=== PATIENT | male | born 1945 | race Two or more races ===

== ENCOUNTER 2024-11-28 04:32 | Inpatient (IN) | payer MEDICARE, MEDICAID ==
[~2024-11-28] VITALS: Ht 160 cm; Wt 63.6 kg
[2024-11-28] MEDS: PIPERACILLIN-TAZOB 3.375GM 100 ML IV ONE ×2 (04:45→10:00)
--- NOTE | 2024-11-28 04:51 | ED.PDOC ---
Altered Mental Status HPI Comments 78-year-old male with a history of Parkinson's disease and dementia brought in by ambulance. The patient's daughter who has power of assistant attorney general stated that the patient has been had greater generalized weakness than usual and a little bit worse mental status over the last 2 days. Patient complains of some dull left flank pain Time Seen by MD: 04:36 Allergies: Coded Allergies: NO KNOWN ALLERGIES (Unverified , 11/28/24) Information Source: Patient Mode of Arrival: EMS Severity: Moderate Timing: Days Duration: Since onset History of: Dementia Past Medical History PAST MEDICAL HISTORY: Dementia Past Medical History (Other): Parkinson's disease Social History Smoker: Non-Smoker Alcohol: Denies ETOH Use Constitutional: reports: malaise Neurological: reports: weakness Unable to Obtain due to: Altered Mental Status, Dementia All Other Systems: Reviewed and Negative Physical Exam General Appearance: Mild Distress, Other (Elderly, somewhat frail) HEENT: Normal ENT Inspection, Pharynx Normal, TMs Normal Neck: Full Range of Motion, Non-Tender, Normal, Normal Inspection Respiratory: Chest Non-Tender, Lungs Clear, No Accessory Muscle Use, No Respiratory Distress, Normal Breath Sounds Cardiovascular: No Edema, No JVD, No Murmur, No Gallop, Normal Peripheral Pulses, Regular Rate/Rhythm Breast Exam: Deferred Gastrointestinal: No Organomegaly, Non Tender, No Pulsatile Mass, Normal Bowel Sounds, Soft Genitalia: Deferred Pelvic: Deferred Rectal: Deferred Extremities: No calf tenderness, Normal capillary refill, Normal inspection, Normal range of motion, Non-tender, No pedal edema Musculoskeletal : Apperance: Normal Neurologic: Motor Weakness, Other (Mild pill-rolling tremor) Cerebellar Function: Normal Reflexes: Normal Skin: Dry, Normal Color, Warm Lymphatic: No Adenopathy Was a procedure done? Was a procedure done?: No Differential Diagnosis (ALOC) Differential Diagnosis: Dehydration, DKA, Encephalopathy, Meningitis, Sepsis, Closed Head Injury, SAH, Drug Overdose, ETOH Intoxication, Other X-Ray, Labs, Meds, VS Vital Signs Date Time Temp Pulse Resp B/P (MAP) Pulse Ox O2 Delivery O2 Flow Rate FiO2 11/28/24 04:39 68 11/28/24 04:32 98.0 70 21 105/70 95 98.0 Time of 1ST Reevaluation: 04:48 Reevaluation 1ST: Unchanged Patient Education/Counseling: Diagnosis, Treatment Family Education/Counseling: No Family Present Sepsis focused exam: focus exam completed (Patient was given initial 1 L bolus of fluid and not the full 30 mL per kg bolus due to concerns of fluid overload), time: (0500 am) SEPSIS Sepsis Screen Recent Procedure: No On Antibiotic Therapy: No Respiratory Rate >20: No Heart Rate >90: No Temp<36 C (96.8 F) or >38.3 C: No SBP <90 or MAP <65 mmHG: Yes New Acute Mental Status Change: Yes Is the patient on CPAP, BIPAP,: No IV fluid challenge completed?: No Physician Orders Electrocardigram (11/28/24 04:41) Complete Blood Count (11/28/24 04:42) Comprehensive Metabolic Panel (11/28/24 04:42) Lipase (11/28/24 04:42) Urinalysis (11/28/24 04:42) Ct Ab Pel Wo Con-No Oral Or Iv (11/28/24 04:42) Blood Culture (11/28/24 04:42) Chest Portable (11/28/24 04:42) Lactic Acid W/ Reflex Order (11/28/24 04:42) Vital Signs Date Time Temp Pulse Resp B/P (MAP) Pulse Ox O2 Delivery O2 Flow Rate FiO2 11/28/24 04:39 68 11/28/24 04:32 98.0 70 21 105/70 95 98.0 Departure 1 Departure Time of Disposition: 07:00 Impression: Primary Impression: Generalized weakness Additional Impressions: Dehydration Hypotension Disposition: ADMITTED INPATIENT Admit to: Med Surg Condition: Guarded Comments Patient with a history of Parkinson's disease and dementia. Now had some generalized weakness. His blood pressure is a little low with a systolic of 105. I think he might be dehydrated. Possible sepsis. Patient was given IV fluids and Zosyn antibiotics. Patient will need admission for supportive care and further workup. Critical Care Note Critical Care Time?: No Stability Stability form required: No Heart Score Heart Score: Heart Score Response (Comments) Value History Slightly Suspicious 0 EKG Repolarization Disturb 1 Age >65 2 Risk Factors 1 or 2 risk factors 1 Troponin Normal limit 0 Total 4 MOLLY SANTOYO MD Nov 28, 2024 04:51
--- NOTE | 2024-11-28 05:54 | DVH ---
CHEST RADIOGRAPH Indication: SOB Technique: Single frontal view of the chest was obtained COMPARISON: None FINDINGS: Lines and Tubes: None. Left anterior chest wall dual lead cardiac pacing device. Lungs: Clear Pleura: No effusion. No pneumothorax. Cardiomediastinal contours: Unremarkable Bones: Unremarkable. Surgical anchors overlie the right humeral head. IMPRESSION: 1. No acute disease.
[2024-11-28 06:10] LABS: Hematocrit 42.3 % (41.0-53.0); Hemoglobin 14.3 g/dL (13.5-17.5); Mean Corpuscular Hemoglobin 32.3 pg (28.0-32.0); Mean Corpuscular Volume 95.4 fL (80.0-100.0); Nucleated Red Blood Cells % 0.1 %
[2024-11-28] MEDS: SODIUM CHLORIDE 0.9% 1,000 ML IVB ONE (06:10)
--- NOTE | 2024-11-28 06:15 | DVH ---
Exam: CT CT AB PEL WO CON-NO ORAL OR IV History: left flank pain Comparison Study: None Technique: Multidetector spiral CT of the abdomen was performed from lung bases to pubic symphysis. I maging was performed without IV contrast. Axial, coronal and sagittal multiplanar reformats were obta ined from the axial data set by the technologist. Radiation Dose : 1. Abdomen/Pelvis: CTDIvol 7.87 mGy, DLP 430.49 mGy*cm. Findings: Evaluation of solid organs is limited due to lack of intravenous contrast use. Lung Bases: No acute or significant lung base finding. Moderate bibasilar atelectasis. Cardiomegaly. Cardiac pacing leads. No pleural or pericardial effusion. Liver: The liver is normal in size. Benign-appearing cysts measure up to 1.2 cm. No focal lesions. Gallbladder and Biliary Tree: Unremarkable Spleen: Unremarkable Pancreas: The pancreas is grossly normal in appearance. Adrenal Glands: Unremarkable Kidneys: Kidneys are grossly normal without calculi or hydronephrosis. 4.2 cm left interpolar renal c ortical cyst. Bladder: Grossly unremarkable for degree of distention. Bowel: The stomach is grossly normal in appearance. Retained colorectal stool. Small bowel and colon are otherwise normal in caliber and distribution. The appendix is normal. Ascites: Absent Lymphadenopathy: No mesenteric, retroperitoneal or periportal lymphadenopathy. Abdominal Wall and Mesentery: Unremarkable. Vasculature: The visualized abdominal aorta is normal in size and caliber. Atherosclerotic vascular c alcifications. Evaluation of abdominal and pelvic vessels is limited due to lack of intravenous contr ast. Pelvic Organs: Unremarkable. Bilateral inguinal hernias. The left inguinal hernia contains a partia l segment of sigmoid colon without evidence of resulting obstruction. Musculoskeletal: No aggressive focal bony lesions, acute fractures or dislocation. IMPRESSION: 1. No acute abdominal or pelvic findings. 2. Cardiomegaly. 3. Retained colorectal stool. 4. Left inguinal hernia containing a partial segment of sigmoid colon without evidence of incarcerati on or obstruction. Radiation optimization: All CT scans at this facility use at least one of these dose optimization loulou hniques: automated exposure control mA and/or kV adjustment per patient size (includes targeted exam s where dose is matched to clinical indication) or iterative reconstruction.
[2024-11-28 06:24] VITALS: PULSE 68; RESP 16; O2SAT 100
[2024-11-28 06:29] LABS: Alanine Aminotransferase 20 U/L (7-40); Albumin 3.9 g/dL (3.2-4.8); Alkaline Phosphatase 107 U/L (46-116); Anion Gap 7 (5-15); BUN/Creatinine Ratio 13.4 (10.0-20.0); Blood Urea Nitrogen 16 mg/dL (9-23); Calcium 9.2 mg/dL (8.7-10.4); Carbon Dioxide 27 mmol/L (20-31); Glucose 85 mg/dL (74-106); Potassium 4.5 mmol/L (3.5-5.1); Sodium 141 mmol/L (136-145); Total Protein 6.6 g/dL (5.7-8.2)
[2024-11-28 06:30] LABS: Bilirubin, Total 0.8 mg/dL (0.2-1.0)
[2024-11-28 06:40] LABS: Chloride 107 mmol/L (98-107); Lipase 60 U/L (12-53)
--- NOTE | 2024-11-28 07:10 | ECG ---
[facility] Test Date: 2024-11-28 Test Time: 04:39:07 Pat Name: ROBERTH ZUNIGA Department: Room: [address] [place] [address] Gender: M Animal Care Attendant: JUDE : 1945 Requested By: MOLLY SANTOYO Order Number: [id number] Reading MD: Herminio Louis Measurements Intervals [place] Rate: 68 P: 0 MS: 0 QRS: -55 QRSD: 136 T: 83 QT: 485 QTc: 516 Interpretive Statements Junctional rhythm Nonspecific IVCD with LAD LVH with secondary repolarization abnormality Electronically Signed On 11-28-2024 17:58:06 PDT by Herminio Louis Please click the below link to view image of tracing.
[2024-11-28] MEDS ORDERED: ONDANSETRON HCL 4 MG/2 ML VIAL IV PRN (07:15)
--- NOTE | 2024-11-28 07:18 | DVHHP2 ---
History of Present Illness Reason for Visit: Generalized weakness History of Present Illness 79-year-old male with a past medical history of Parkinson's disease, dementia, atrial fibrillation on Eliquis, hyperlipidemia, and hypertension presents to the emergency department via EMS with a chief complaint of generalized weakness. The patient is alert and oriented to person and place, which is consistent with his cognitive baseline per family. He denies any acute pain. His daughter, who provides collateral history, reports that around three a.m. this morning, while she was changing him, he suddenly became stiff and began shaking, followed by a noticeable change in when dull status that was not consistent with his usual baseline. She also notes that the patient has been IV receiving outpatient physical therapy for progressive weakness over the past several weeks. There is no history of trauma recent falls. In the ED, lipase was mildly elevated at 60. UA is pending Past Medical History As stated in HPI Past Surgical History Denies Family History Reviewed, non-contributory to the management of this case. Past Social History The patient lives at home, denies smoking, alcohol or illicit drugs abuse. Review of Systems Constitutional: Yes: Weakness, Malaise; No: Fever, Chills, Sweats, Other Eyes: No: Pain, Vision change, Conjunctivae inflammation, Eyelid inflammation, Other, Redness ENT: No: Ear pain, Ear discharge, Nose pain, Nose discharge, Nose congestion, Mouth pain, Mouth swelling, Throat pain, Throat swelling, Other Respiratory: No: Cough, Dry, Shortness of breath, SOB with excertion, Wheezing, Hemoptysis, Pleuritic Pain, Sputum, Wheezing, Other Gastrointestinal: No: Nausea, Vomiting, Abdominal Pain, Diarrhea, Constipation, Melena, Hematochezia, Other Genitourinary: No Dysuria, No Frequency, No Incontinence, No Hematuria, No Retention, No Other Musculoskeletal: No: other, neck pain, shoulder pain, arm pain, back pain, hand pain, leg pain, foot pain Skin: No: Rash, Lesions, Jaundice, Bruising, Other Neurological: Confusion Allergies: Coded Allergies: NO KNOWN ALLERGIES (Unverified , 11/28/24) Exam Vital Signs Vital Signs Date Time Temp Pulse Resp B/P (MAP) Pulse Ox O2 Delivery O2 Flow Rate FiO2 11/28/24 06:24 68 16 100 Nasal Cannula* 2 28 11/28/24 05:30 98.3 117/78 (91) 98.3 General Appearance: Alert, Cooperative, No acute distress, Other (Alert and oriented x2) HEENT: Atraumatic, PERRLA, EOMI Respiratory: Clear to auscultation Cardiovascular: Regular rate Abdominal: Normal bowel sounds, Soft Extremities: No clubbing, No cyanosis, No edema Skin: No rashes, No breakdown Neuro: Normal speech Labs/Xrays Labs Test 11/28/24 05:50 Range/Units White Blood Count 7.7 4.4-10.8 10^3/uL Red Blood Count 4.44 L 4.5-5.90 10^6/uL Hemoglobin 14.3 13.5-17.5 g/dL Hematocrit 42.3 41.0-53.0 % Mean Corpuscular Volume 95.4 80.0-100.0 fL Mean Corpuscular Hemoglobin 32.3 H 28.0-32.0 pg Mean Corpuscular Hemoglobin Concent 33.8 32.0-36.0 g/dL Red Cell Distribution Width 15.1 H 11.8-14.3 % Platelet Count 199 140-450 10^3/uL Mean Platelet Volume 6.8 L 6.9-10.8 fL Neutrophils (%) (Auto) 78.1 37.0-80.0 % Lymphocytes (%) (Auto) 12.0 10.0-50.0 % Monocytes (%) (Auto) 8.8 0.0-12.0 % Eosinophils (%) (Auto) 0.6 0.0-7.0 % Basophils (%) (Auto) 0.5 0.0-2.0 % Neutrophils # (Auto) 6.1 1.6-8.6 10 ^3/uL Lymphocytes # (Auto) 0.9 0.4-5.4 10 ^3/uL Monocytes # (Auto) 0.7 0-1.3 10 ^3/uL Eosinophils # (Auto) 0 0-0.8 10 ^3/uL Basophils # (Auto) 0 0-0.2 10 ^3/uL Nucleated Red Blood Cells 0.1 % Sodium Level 141 136-145 mmol/L Potassium Level 4.5 3.5-5.1 mmol/L Chloride Level 107 98-107 mmol/L Carbon Dioxide Level 27 20-31 mmol/L Anion Gap 7 5-15 Blood Urea Nitrogen 16 9-23 mg/dL Creatinine 1.19 0.700-1.30 mg/dL Glomerular Filtration Rate Calc 63 >90 mL/min BUN/Creatinine Ratio 13.4 10.0-20.0 Serum Glucose 85 74-106 mg/dL Lactic Acid Level 1.3 0.4-2.0 mmol/L Calcium Level 9.2 8.7-10.4 mg/dL Total Bilirubin 0.8 0.2-1.0 mg/dL Aspartate Amino Transferase (AST) 29 13-40 U/L Alanine Aminotransferase (ALT) 20 7-40 U/L Alkaline Phosphatase 107 46-116 U/L Total Protein 6.6 5.7-8.2 g/dL Albumin 3.9 3.2-4.8 g/dL Lipase 60 H 12-53 U/L PROCEDURE(s): CXRP - CHEST PORTABLE REASON: SOB ORDER NUMBER(s): [id number], ACCESSION NUMBER(s): [id number] CHEST RADIOGRAPH Indication: SOB Technique: Single frontal view of the chest was obtained COMPARISON: None FINDINGS: Lines and Tubes: None. Left anterior chest wall dual lead cardiac pacing device. Lungs: Clear Pleura: No effusion. No pneumothorax. Cardiomediastinal contours: Unremarkable Bones: Unremarkable. Surgical anchors overlie the right humeral head. IMPRESSION: 1. No acute disease. SEPSIS Sepsis Screen Date sepsis recognized/suspect: Nov 28, 2024 Time Sepsis recognized/suspect: 04:32 Recent Procedure: No On Antibiotic Therapy: No Respiratory Rate >20: No Heart Rate >90: No Temp<36 C (96.8 F) or >38.3 C: No SBP <90 or MAP <65 mmHG: Yes New Acute Mental Status Change: Yes Is the patient on CPAP, BIPAP,: No IV fluid challenge completed?: No Physician Orders Urinalysis (11/28/24 04:42) Ct Ab Pel Wo Con-No Oral Or Iv (11/28/24 04:42) Blood Culture (11/28/24 04:42) Chest Portable (11/28/24 04:42) Straightcath If Unable To Void (11/28/24 07:14) Admit (11/28/24 07:14) Code Status (11/28/24 07:14) 0.9% Ns 1000 Ml (11/28/24 07:15) Ondansetron Hcl (Zofran) (11/28/24 07:15) Enoxaparin Sodium (Lovenox) (11/28/24 10:00) Fall Risk Precautions In Place QSHIFT (11/28/24 07:14) Complete Blood Count (11/29/24 04:00) Comprehensive Metabolic Panel (11/29/24 04:00) Cardiac Diet-2gna,Lofat,Lochol (11/28/24 Breakfast) Pt Request For Service (11/28/24 07:14) Vital Signs Date Time Temp Pulse Resp B/P (MAP) Pulse Ox O2 Delivery O2 Flow Rate FiO2 11/28/24 06:24 68 16 100 Nasal Cannula* 2 28 11/28/24 05:30 98.3 65 16 117/78 (91) 100 98.3 11/28/24 04:39 68 11/28/24 04:32 98.0 70 21 105/70 95 98.0 Laboratory Tests Test 11/28/24 05:50 Lactic Acid Level 1.3 mmol/L (0.4-2.0) White Blood Count 7.7 10^3/uL (4.4-10.8) Medications Medications Dose Ordered Sig/Harris Route Start Time Stop Time Status Last Admin Dose Admin Sodium Chloride 1,000 ml @ 1,000 mls/hr Q1H ONCE IVB 11/28/24 04:45 11/28/24 05:44 DC 11/28/24 06:10 1,000 MLS/HR Assessment/Plan Assessment/Plan # Generalized weakness * Admit to medical surgical unit * Physical therapy evaluation and treatment * Continue IV fluids for hydration * UA pending * High fall risk precautions # Parkinson's disease # dementia # ALOC * CT head ordered * Consider Neurology consult depending on progression # hypertension * Monitor, noted patient on midodrine * Hydralazine as needed # hyperlipidemia * Continue with statins * Lipid panel # hx of AFib * Continue with amiodarone * Continue Eliquis on discharge, Lovenox if CT is negative and while in-patient DVT prophylaxis Medical plan discussed with patient and daughter over the phone Plan discussed with: Patient My Orders Orders - NURYS POLANCO ENERGY DIRECTOR Procedure Category Date Status Time Straightcath If ORDERS 11/28/24 Verified Unable To Void 07:14 Admit ADMIT 11/28/24 Verified 07:14 Code Status CODE 11/28/24 Verified 07:14 0.9% Ns 1000 Ml PHA 11/28/24 Verified 07:15 Ondansetron Hcl PHA 11/28/24 Verified (Zofran) 07:15 Enoxaparin Sodium PHA 11/28/24 Verified (Lovenox) 10:00 Fall Risk Precautions ROMEO 11/28/[address] 07:14 Complete Blood Count LAB 11/29/24 Verified 04:00 Comprehensive LAB 11/29/24 Verified Metabolic Panel 04:00 Cardiac DIET 11/28/24 Verified Diet-2gna,Lofat,Lochol Breakfast Pt Request For Service PT 11/28/24 Verified 07:14 Date of Service: Nov 28, 2024 Billing Provider: NURYS POLANCO Common Visit Codes: [id number] INP/OBS CARE (HIGH) Consultation Codes: [id number] CONSULT <45MIN NURYS POLANCO Nov 28, 2024 07:18
[2024-11-28 07:20] VITALS: PULSE 70; RESP 16; O2SAT 96
[2024-11-28] MEDS ORDERED: AMIO200T13 PO (08:22)
[2024-11-28] MEDS ORDERED: ATOR40TA52 PO (08:22)
[2024-11-28] MEDS ORDERED: hydrALAZINE HCL 20 MG/ML VL IV PRN (08:30)
[2024-11-28 09:12] LABS: Triglycerides 111 mg/dL (< 150)
[2024-11-28 09:14] LABS: Cholesterol 157 mg/dL (< 200); HDL Cholesterol 44 mg/dL (40-59)
--- NOTE | 2024-11-28 09:58 | DVH ---
EXAM: CT HEAD WITHOUT CONTRAST INDICATION: aloc TECHNIQUE: CT of the head without intravenous contrast. Coronal and sagittal reformatted images are s ubmitted. Radiation Dose : 1. Head: CT Dose: CTDI volume is 58.09 mGy. Dose-length product is 929.5 mGy*cm The dose indicators for CT are the volume Computed Tomography (CT) Dose Index (CTDIvol) and the Dose Length Product (DLP), and are measured in units of mGy and mGy-cm, respectively. These indicators are not patient dose, but values generated from the CT scanner acquisition factors. The report includes radiation exposure data for exposures received during this examination. All CT scans at this medical facility are performed using dose modulation techniques as appropriate to a performed exam including the following: Automated exposure control was utilized; adjustment of the MA and/or KV according to patient size; and use of iterative reconstruction technique. COMPARISON: None FINDINGS: There is no evidence of acute intracranial hemorrhage, extra-axial collection, mass effect, midline s hift, herniation or hydrocephalus. There are periventricular and subcortical hypodensities, nonspecific, but likely reflecting sequelae of chronic microvascular ischemic changes. The ventricles, sulci and cisterns are age appropriate. The carrillo-white differentiation is intact. The visualized paranasal sinuses and mastoid air cells are clear. No depressed calvarial fracture. The surrounding soft tissues are unremarkable. IMPRESSION: 1. No evidence of acute intracranial abnormality.
[2024-11-28] MEDS: SODIUM CHLORIDE 0.9% 1,000 ML IV SCH (10:00)
[2024-11-28] MEDS: AMIODARONE HCL 200 MG TAB PO SCH (10:40)
[2024-11-28] MEDS: ENOXAPARIN SOD 40 MG/0.4 ML SYRINGE SC SCH (10:41)
--- NOTE | 2024-11-28 12:28 | DVHPN2 ---
Reviewed: Care Plan, H&P, Labs, Medications, Previous Orders, Radiology Changes from previous H/P or p: No Changes Eyes: No Pain, No Vision change, No Conjunctivae inflammation, No Eyelid inflammation, No Other, No Redness ENT: No Ear pain, No Ear discharge, No Nose pain, No Nose discharge, No Nose congestion, No Mouth pain, No Mouth swelling, No Throat pain, No Throat swelling, No Other Respiratory: No Cough, No Dry, No Shortness of breath, No SOB with excertion, No Wheezing, No Hemoptysis, No Pleuritic Pain, No Sputum, No Other Gastrointestinal: No Nausea, No Vomiting, No Abdominal Pain, No Diarrhea, No Constipation, No Melena, No Hematochezia, No Other Genitourinary: No Dysuria, No Frequency, No Incontinence, No Hematuria, No Retention, No Other Musculoskeletal: No other, No neck pain, No shoulder pain, No arm pain, No back pain, No hand pain, No leg pain, No foot pain Skin: No Rash, No Lesions, No Jaundice, No Bruising, No Other Objective Vitals Vital Signs Date Time Temp Pulse Resp B/P (MAP) Pulse Ox O2 Delivery O2 Flow Rate FiO2 11/28/24 07:20 70 16 96 Nasal Cannula* 2 28 11/28/24 07:20 97.7 122/81 (95) 97.7 Medications Current Medications Medications Dose Ordered Sig/Harris Route Start Time Stop Time Status Last Admin Dose Admin Sodium Chloride 1,000 ml @ 60 mls/hr [id number] IV 11/28/24 07:15 11/28/24 10:00 60 MLS/HR Ondansetron HCl 4 mg Q4HP PRN IV 11/28/24 07:15 Enoxaparin Sodium 40 mg DAILY SC 11/28/24 10:00 11/28/24 10:41 40 MG Amiodarone HCl 200 mg DAILY PO 11/28/24 10:00 11/28/24 10:40 200 MG Atorvastatin Calcium 40 mg HS PO 11/28/24 22:00 Hydralazine HCl 10 mg Q6HP PRN IV 11/28/24 08:30 Laboratory Results Laboratory Tests 11/28/24 05:50 Chemistry Test 11/28/24 05:50 Albumin 3.9 g/dL (3.2-4.8) Calcium Level 9.2 mg/dL (8.7-10.4) Total Protein 6.6 g/dL (5.7-8.2) Lipid panel Test 11/28/24 05:50 Cholesterol Level 157 mg/dL (< 200) HDL Cholesterol 44 mg/dL (40-59) Lipase 60 U/L (12-53) H Triglycerides Level 111 mg/dL (< 150) LFT Test 11/28/24 05:50 Alanine Aminotransferase (ALT) 20 U/L (7-40) Alkaline Phosphatase 107 U/L (46-116) Aspartate Amino Transferase (AST) 29 U/L (13-40) Total Bilirubin 0.8 mg/dL (0.2-1.0) Labs and/or images reviewed: Labs reviewed by me, Image(s) reviewed by me Assessment/Plan Assessment/Plan Acute generalized weakness Acute Dehydration: IV fluids Parkinson's disease Dementia Acute metabolic encephalopathy Hypotension Hypercholesterolemia History of AFib: Amiodarone Eliquis Chest x-ray Negative CT head negative CT abdomen pelvis without contrast negative Time spent 70 minutes Advanced care planning time 20 minutes Patient is full code Plan discussed with: Patient My Orders Orders - DOROTA MONTANA MD Procedure Category Date Status Time Urinalysis LAB 11/28/24 Logged 12:24 Urine Bacterial ALIYAH 11/28/24 Transmitted Culture 12:24 Blood Culture ALIYAH 11/28/24 Transmitted 12:24 Date of Service: Nov 28, 2024 Billing Provider: DOROTA MONTANA MD Common Visit Codes: [id number] CARE 30-74 MIN DOROTA MONTANA MD Nov 28, 2024 12:28
[2024-11-28 12:35] LABS: Urine Protein, UAD Negative (Negative)
[2024-11-28 13:31] LABS: COVID19 ANTIGEN SOFIA FIA NEGATIVE (NEGATIVE)
[2024-11-28] MEDS: LORazepam 2MG/ML-1ML VIAL IV ONE (15:00)
[2024-11-28] MEDS: LORazepam 2MG/ML-1ML VIAL ONE (15:22)
[2024-11-28 20:00] VITALS: BP 109/65; PULSE 85; TEMP 98.2
[2024-11-28 21:00] VITALS: BP 97/67; PULSE 73
[2024-11-28] MEDS: CARBIDOPA W LEVODOPA 25/100mg TABLET PO SCH (21:39)
[2024-11-28] MEDS: ATORVASTATIN 20 MG TAB PO SCH (21:40)
[2024-11-28 22:00] VITALS: BP 95/59; PULSE 75
[2024-11-28 23:00] VITALS: BP 93/59; PULSE 73
[2024-11-29] VITALS (8 sets, daily range): BP systolic 100–112; BP diastolic 64–79; PULSE 73–90; RESP 16–18; TEMP 97.7–97.9; O2SAT 96–100
[2024-11-29] MEDS: MIDODRINE HCL 10 MG TAB PO ONE (00:33)
[2024-11-29 05:57] LABS: Hematocrit 41.7 % (41.0-53.0); Hemoglobin 13.8 g/dL (13.5-17.5); Mean Corpuscular Hemoglobin 32.3 pg (28.0-32.0); Mean Corpuscular Volume 97.7 fL (80.0-100.0); Nucleated Red Blood Cells % 0.0 %
[2024-11-29 06:14] LABS: Alanine Aminotransferase 29 U/L (7-40); Albumin 3.8 g/dL (3.2-4.8); Alkaline Phosphatase 99 U/L (46-116); Anion Gap 9 (5-15); BUN/Creatinine Ratio 21.0 (10.0-20.0); Blood Urea Nitrogen 21 mg/dL (9-23); Calcium 8.8 mg/dL (8.7-10.4); Carbon Dioxide 24 mmol/L (20-31); Potassium 4.5 mmol/L (3.5-5.1); Sodium 143 mmol/L (136-145); Total Protein 6.0 g/dL (5.7-8.2)
[2024-11-29 06:15] LABS: Bilirubin, Total 0.9 mg/dL (0.2-1.0); Chloride 110 mmol/L (98-107); Glucose 69 mg/dL (74-106)
--- NOTE | 2024-11-29 12:31 | DVHPN2 ---
Reviewed: Care Plan, H&P, Labs, Medications, Previous Orders, Radiology Changes from previous H/P or p: No Changes Eyes: No Pain, No Vision change, No Conjunctivae inflammation, No Eyelid inflammation, No Other, No Redness ENT: No Ear pain, No Ear discharge, No Nose pain, No Nose discharge, No Nose congestion, No Mouth pain, No Mouth swelling, No Throat pain, No Throat swelling, No Other Respiratory: No Cough, No Dry, No Shortness of breath, No SOB with excertion, No Wheezing, No Hemoptysis, No Pleuritic Pain, No Sputum, No Other Gastrointestinal: No Nausea, No Vomiting, No Abdominal Pain, No Diarrhea, No Constipation, No Melena, No Hematochezia, No Other Genitourinary: No Dysuria, No Frequency, No Incontinence, No Hematuria, No Retention, No Other Musculoskeletal: No other, No neck pain, No shoulder pain, No arm pain, No back pain, No hand pain, No leg pain, No foot pain Skin: No Rash, No Lesions, No Jaundice, No Bruising, No Other Objective Vitals Vital Signs Date Time Temp Pulse Resp B/P (MAP) Pulse Ox O2 Delivery O2 Flow Rate FiO2 11/29/24 12:22 73 11/29/24 12:00 20 103/72 (82) 100 11/29/24 08:25 98.2 98.2 11/29/24 08:25 Nasal Cannula* 2 28 Intake/Output Intake and Output 11/29/24 07:00 Intake Total 820 ml Output Total 800 ml Balance 20 ml Intake Oral 240 ml IV Total 580 ml Output Urine Total 800 ml Medications Current Medications Medications Dose Ordered Sig/Harris Route Start Time Stop Time Status Last Admin Dose Admin Sodium Chloride 1,000 ml @ 60 mls/hr [id number] IV 11/28/24 07:15 11/29/24 00:22 60 MLS/HR Ondansetron HCl 4 mg Q4HP PRN IV 11/28/24 07:15 Enoxaparin Sodium 40 mg DAILY SC 11/28/24 10:00 11/29/24 10:10 40 MG Amiodarone HCl 200 mg DAILY PO 11/28/24 10:00 11/28/24 10:40 200 MG Atorvastatin Calcium 40 mg HS PO 11/28/24 22:00 11/28/24 21:40 40 MG Hydralazine HCl 10 mg Q6HP PRN IV 11/28/24 08:30 Carbidopa/Levodopa 1 tab TID PO 11/28/24 22:00 11/29/24 05:02 1 TAB Laboratory Results Laboratory Tests 11/29/24 04:50 Chemistry Test 11/29/24 04:50 Albumin 3.8 g/dL (3.2-4.8) Calcium Level 8.8 mg/dL (8.7-10.4) Total Protein 6.0 g/dL (5.7-8.2) LFT Test 11/29/24 04:50 Alanine Aminotransferase (ALT) 29 U/L (7-40) Alkaline Phosphatase 99 U/L (46-116) Aspartate Amino Transferase (AST) 30 U/L (13-40) Total Bilirubin 0.9 mg/dL (0.2-1.0) Urinalysis Test 11/28/24 12:27 Urine Color Light-yellow (Yellow) Urine Clarity Clear (Clear) Urine pH 5.5 (5.0-9.0) Urine Specific [place] 1.009 (1.001-1.035) Urine Protein Negative (Negative) Urine Ketones Negative (Negative) Urine Blood Negative /uL (Negative) Urine Nitrite Negative (Negative) Urine Bilirubin Negative (Negative) Urine Urobilinogen Normal mg/dL (Negative) Urine Leukocyte Esterase Negative /uL (Negative) Urine RBC <1 /hpf (0 - 3) Urine Microscopic WBC < 1 /HPF (0-3) Urine Squamous Epithelial Cells Few /hpf (<5) Urine Bacteria None seen /hpf (None Seen) Urine Glucose Normal mg/dL (Normal) Microbiology Microbiology Date/Time Source Procedure Growth Status 11/28/24 12:27 Voided Urine Urine Culture - Preliminary Resulted 11/28/24 11:05 Blood Blood Culture - Preliminary NO GROWTH AFTER 24 HOURS OF INCUBATION. Resulted Labs and/or images reviewed: Labs reviewed by me, Image(s) reviewed by me Assessment/Plan Assessment/Plan Acute generalized weakness Acute Dehydration: IV fluids Parkinson's disease Dementia Acute metabolic encephalopathy Hypotension Hypercholesterolemia History of AFib: Amiodarone Eliquis Chest x-ray Negative CT head negative CT abdomen pelvis without contrast negative Time spent 70 minutes Advanced care planning time 20 minutes Patient is full code Blood cultures negative Urine cultures negative Flu test negative Ani test neg Plan discussed with: Patient My Orders Orders - DOROTA MONTANA MD Procedure Category Date Status Time Carbidopa W Levodopa PHA 11/28/24 In Process 25/100mg (Sinemet 2 22:00 Date of Service: Nov 29, 2024 Billing Provider: DOROTA MONTANA MD Common Visit Codes: [id number] INP/OBS CARE(HIGH) DOROTA MONTANA MD Nov 29, 2024 12:31
[2024-11-29] MEDS: MIDODRINE HCL 10 MG TAB PO SCH (18:11)
[2024-11-29] MEDS ORDERED: CARV3.1240 PO (21:33)
[2024-11-29] MEDS ORDERED: LACT10SO3 PO (21:33)
[2024-11-29] MEDS ORDERED: CARB25TA77 (21:33)
[2024-11-29] MEDS ORDERED: AMIO100T3 PO (21:33)
[2024-11-29] MEDS ORDERED: MIDO10TA10 PO (21:33)
[2024-11-29] MEDS ORDERED: AMIO200T33 PO (21:35)
[2024-11-30] VITALS (8 sets, daily range): BP systolic 107–121; BP diastolic 72–82; PULSE 62–83; RESP 16–18; TEMP 96.7–98; O2SAT 96–100
[2024-11-30] MEDS: HYDROcodone-ACET 5/325MG TAB PO ONE (03:33)
--- NOTE | 2024-11-30 11:21 | DVHPN2 ---
Reviewed: Care Plan, H&P, Labs, Medications, Previous Orders, Radiology Changes from previous H/P or p: No Changes Eyes: No Pain, No Vision change, No Conjunctivae inflammation, No Eyelid inflammation, No Other, No Redness ENT: No Ear pain, No Ear discharge, No Nose pain, No Nose discharge, No Nose congestion, No Mouth pain, No Mouth swelling, No Throat pain, No Throat swelling, No Other Respiratory: No Cough, No Dry, No Shortness of breath, No SOB with excertion, No Wheezing, No Hemoptysis, No Pleuritic Pain, No Sputum, No Other Gastrointestinal: No Nausea, No Vomiting, No Abdominal Pain, No Diarrhea, No Constipation, No Melena, No Hematochezia, No Other Genitourinary: No Dysuria, No Frequency, No Incontinence, No Hematuria, No Retention, No Other Musculoskeletal: No other, No neck pain, No shoulder pain, No arm pain, No back pain, No hand pain, No leg pain, No foot pain Skin: No Rash, No Lesions, No Jaundice, No Bruising, No Other Objective Vitals Vital Signs Date Time Temp Pulse Resp B/P (MAP) Pulse Ox O2 Delivery O2 Flow Rate FiO2 11/30/24 05:00 98.0 69 17 112/79 (90) 100 98.0 11/29/24 20:44 Nasal Cannula* 2 28 Intake/Output Intake and Output 11/30/24 07:00 Intake Total 870 ml Output Total 3750 ml Balance -2880 ml Intake Oral 150 ml IV Total 720 ml Output Urine Total 3750 ml # Bowel Movements 1 Medications Current Medications Medications Dose Ordered Sig/Harris Route Start Time Stop Time Status Last Admin Dose Admin Sodium Chloride 1,000 ml @ 60 mls/hr [id number] IV 11/28/24 07:15 11/30/24 09:43 60 MLS/HR Ondansetron HCl 4 mg Q4HP PRN IV 11/28/24 07:15 Enoxaparin Sodium 40 mg DAILY SC 11/28/24 10:00 11/30/24 09:44 40 MG Amiodarone HCl 200 mg DAILY PO 11/28/24 10:00 11/28/24 10:40 200 MG Atorvastatin Calcium 40 mg HS PO 11/28/24 22:00 11/29/24 22:01 40 MG Hydralazine HCl 10 mg Q6HP PRN IV 11/28/24 08:30 Carbidopa/Levodopa 1 tab TID PO 11/28/24 22:00 11/30/24 05:37 1 TAB Midodrine 10 mg TID@0600,1200,1800 PO 11/29/24 18:00 11/30/24 05:37 10 MG Laboratory Results Laboratory Tests 11/29/24 04:50 Urinalysis Test 11/28/24 12:27 Urine Color Light-yellow (Yellow) Urine Clarity Clear (Clear) Urine pH 5.5 (5.0-9.0) Urine Specific [place] 1.009 (1.001-1.035) Urine Protein Negative (Negative) Urine Ketones Negative (Negative) Urine Blood Negative /uL (Negative) Urine Nitrite Negative (Negative) Urine Bilirubin Negative (Negative) Urine Urobilinogen Normal mg/dL (Negative) Urine Leukocyte Esterase Negative /uL (Negative) Urine RBC <1 /hpf (0 - 3) Urine Microscopic WBC < 1 /HPF (0-3) Urine Squamous Epithelial Cells Few /hpf (<5) Urine Bacteria None seen /hpf (None Seen) Urine Glucose Normal mg/dL (Normal) Microbiology Microbiology Date/Time Source Procedure Growth Status 11/28/24 12:27 Voided Urine Urine Culture - Preliminary Resulted 11/28/24 11:05 Blood Blood Culture - Preliminary NO GROWTH AFTER 24 HOURS OF INCUBATION. Resulted Labs and/or images reviewed: Labs reviewed by me, Image(s) reviewed by me Assessment/Plan Assessment/Plan Acute generalized weakness Acute Dehydration: IV fluids Parkinson's disease Dementia Acute metabolic encephalopathy Hypertension Hypercholesterolemia History of AFib: Amiodarone Eliquis Chest x-ray Negative CT head negative CT abdomen pelvis without contrast negative Time spent 50 minutes Advanced care planning time 20 minutes Patient is full code Blood cultures negative Urine cultures negative Flu test negative Ani test neg Dotty at bedside Plan discussed with: Patient My Orders Orders - DOROTA MONTANA MD Procedure Category Date Status Time Midodrine Tablet PHA 11/29/24 In Process (Proamatine Tablet) 18:00 Date of Service: Nov 30, 2024 Billing Provider: DOROTA MONTANA MD Common Visit Codes: [id number] INP/OBS CARE(HIGH) DOROTA MONTANA MD Nov 30, 2024 11:21
[2024-12-01] VITALS (10 sets, daily range): BP systolic 103–123; BP diastolic 70–89; PULSE 68–90; RESP 16–20; TEMP 97.1–98.7; O2SAT 96–100
--- NOTE | 2024-12-01 10:55 | DVHPN2 ---
Reviewed: Care Plan, H&P, Labs, Medications, Previous Orders, Radiology Changes from previous H/P or p: No Changes Eyes: No Pain, No Vision change, No Conjunctivae inflammation, No Eyelid inflammation, No Other, No Redness ENT: No Ear pain, No Ear discharge, No Nose pain, No Nose discharge, No Nose congestion, No Mouth pain, No Mouth swelling, No Throat pain, No Throat swelling, No Other Respiratory: No Cough, No Dry, No Shortness of breath, No SOB with excertion, No Wheezing, No Hemoptysis, No Pleuritic Pain, No Sputum, No Other Gastrointestinal: No Nausea, No Vomiting, No Abdominal Pain, No Diarrhea, No Constipation, No Melena, No Hematochezia, No Other Genitourinary: No Dysuria, No Frequency, No Incontinence, No Hematuria, No Retention, No Other Musculoskeletal: No other, No neck pain, No shoulder pain, No arm pain, No back pain, No hand pain, No leg pain, No foot pain Skin: No Rash, No Lesions, No Jaundice, No Bruising, No Other Objective Vitals Vital Signs Date Time Temp Pulse Resp B/P (MAP) Pulse Ox O2 Delivery O2 Flow Rate FiO2 12/01/24 09:00 98.7 71 18 117/77 (90) 100 98.7 12/01/24 08:00 Nasal Cannula* 2 28 Intake/Output Intake and Output 12/01/24 07:00 Intake Total 734 ml Output Total 1325 ml Balance -591 ml Intake Oral 734 ml Output Urine Total 1325 ml # Bowel Movements 1 Medications Current Medications Medications Dose Ordered Sig/Harris Route Start Time Stop Time Status Last Admin Dose Admin Sodium Chloride 1,000 ml @ 60 mls/hr [id number] IV 11/28/24 07:15 12/01/24 05:30 60 MLS/HR Ondansetron HCl 4 mg Q4HP PRN IV 11/28/24 07:15 Enoxaparin Sodium 40 mg DAILY SC 11/28/24 10:00 12/01/24 09:41 40 MG Amiodarone HCl 200 mg DAILY PO 11/28/24 10:00 11/28/24 10:40 200 MG Atorvastatin Calcium 40 mg HS PO 11/28/24 22:00 11/30/24 22:20 40 MG Hydralazine HCl 10 mg Q6HP PRN IV 11/28/24 08:30 Carbidopa/Levodopa 1 tab TID PO 11/28/24 22:00 12/01/24 05:28 1 TAB Midodrine 10 mg TID@0600,1200,1800 PO 11/29/24 18:00 12/01/24 05:28 10 MG Laboratory Results Laboratory Tests 11/29/24 04:50 Urinalysis Test 11/28/24 12:27 Urine Color Light-yellow (Yellow) Urine Clarity Clear (Clear) Urine pH 5.5 (5.0-9.0) Urine Specific [place] 1.009 (1.001-1.035) Urine Protein Negative (Negative) Urine Ketones Negative (Negative) Urine Blood Negative /uL (Negative) Urine Nitrite Negative (Negative) Urine Bilirubin Negative (Negative) Urine Urobilinogen Normal mg/dL (Negative) Urine Leukocyte Esterase Negative /uL (Negative) Urine RBC <1 /hpf (0 - 3) Urine Microscopic WBC < 1 /HPF (0-3) Urine Squamous Epithelial Cells Few /hpf (<5) Urine Bacteria None seen /hpf (None Seen) Urine Glucose Normal mg/dL (Normal) Microbiology Microbiology Date/Time Source Procedure Growth Status 11/28/24 12:27 Voided Urine Urine Culture - Final Complete 11/28/24 11:05 Blood Blood Culture - Preliminary NO GROWTH AFTER 48 HOURS OF INCUBATION. Resulted Labs and/or images reviewed: Labs reviewed by me, Image(s) reviewed by me Assessment/Plan Assessment/Plan Acute generalized weakness Acute Dehydration: IV fluids Parkinson's disease Dementia Acute metabolic encephalopathy Hypertension Hypercholesterolemia History of AFib: Amiodarone Eliquis Chest x-ray Negative CT head negative CT abdomen pelvis without contrast negative Time spent 50 minutes Advanced care planning time 20 minutes Patient is full code Blood cultures negative Urine cultures negative Flu test negative Ani test neg Dotty at bedside Plan discussed with: Patient Date of Service: Dec 01, 2024 Billing Provider: DOROTA MONTANA MD Common Visit Codes: [id number] INP/OBS CARE(HIGH) DOROTA MONTANA MD Dec 01, 2024 10:55
--- NOTE | 2024-12-01 10:59 | DVHDS2 ---
Discharge Summary Date of Admission Nov 28, 2024 at 07:14 Date of Discharge: Dec 01, 2024 Admitting Diagnosis Acute generalized weakness Wounds: None Labs/Diagnostic Data: Laboratory Results Test 11/29/24 09:48 11/29/24 04:50 11/28/24 12:40 11/28/24 12:27 POC Glucose 91 mg/dl (70-106) White Blood Count 7.3 10^3/uL (4.4-10.8) Red Blood Count 4.27 10^6/uL (4.5-5.90) Hemoglobin 13.8 g/dL (13.5-17.5) Hematocrit 41.7 % (41.0-53.0) Mean Corpuscular Volume 97.7 fL (80.0-100.0) Mean Corpuscular Hemoglobin 32.3 pg (28.0-32.0) Mean Corpuscular Hemoglobin Concent 33.1 g/dL (32.0-36.0) Red Cell Distribution Width 15.3 % (11.8-14.3) Platelet Count 211 10^3/uL (140-450) Mean Platelet Volume 7.2 fL (6.9-10.8) Neutrophils (%) (Auto) 68.2 % (37.0-80.0) Lymphocytes (%) (Auto) 17.1 % (10.0-50.0) Monocytes (%) (Auto) 12.9 % (0.0-12.0) Eosinophils (%) (Auto) 1.2 % (0.0-7.0) Basophils (%) (Auto) 0.6 % (0.0-2.0) Neutrophils # (Auto) 5.0 10 ^3/uL (1.6-8.6) Lymphocytes # (Auto) 1.2 10 ^3/uL (0.4-5.4) Monocytes # (Auto) 0.9 10 ^3/uL (0-1.3) Eosinophils # (Auto) 0.1 10 ^3/uL (0-0.8) Basophils # (Auto) 0 10 ^3/uL (0-0.2) Nucleated Red Blood Cells 0.0 % Sodium Level 143 mmol/L (136-145) Potassium Level 4.5 mmol/L (3.5-5.1) Chloride Level 110 mmol/L (98-107) Carbon Dioxide Level 24 mmol/L (20-31) Anion Gap 9 (5-15) Blood Urea Nitrogen 21 mg/dL (9-23) Creatinine 1.00 mg/dL (0.700-1.30) Glomerular Filtration Rate Calc 78 mL/min (>90) BUN/Creatinine Ratio 21.0 (10.0-20.0) Serum Glucose 69 mg/dL (74-106) Calcium Level 8.8 mg/dL (8.7-10.4) Total Bilirubin 0.9 mg/dL (0.2-1.0) Aspartate Amino Transferase (AST) 30 U/L (13-40) Alanine Aminotransferase (ALT) 29 U/L (7-40) Alkaline Phosphatase 99 U/L (46-116) Total Protein 6.0 g/dL (5.7-8.2) Albumin 3.8 g/dL (3.2-4.8) Influenza Type A Antigen Negative (Negative) Influenza Type B Antigen Negative (Negative) SARS-CoV-2 Antigen (Rapid) Negative (NEGATIVE) Urine Color Light-yellow (Yellow) Urine Clarity Clear (Clear) Urine pH 5.5 (5.0-9.0) Urine Specific [place] 1.009 (1.001-1.035) Urine Protein Negative (Negative) Urine Ketones Negative (Negative) Urine Blood Negative /uL (Negative) Urine Nitrite Negative (Negative) Urine Bilirubin Negative (Negative) Urine Urobilinogen Normal mg/dL (Negative) Urine Leukocyte Esterase Negative /uL (Negative) Urine RBC <1 /hpf (0 - 3) Urine Microscopic WBC < 1 /HPF (0-3) Urine Squamous Epithelial Cells Few /hpf (<5) Urine Bacteria None seen /hpf (None Seen) Urine Glucose Normal mg/dL (Normal) Test 11/28/24 05:50 Lactic Acid Level 1.3 mmol/L (0.4-2.0) Triglycerides Level 111 mg/dL (< 150) Cholesterol Level 157 mg/dL (< 200) LDL Cholesterol 97 mg/dL (< 100) HDL Cholesterol 44 mg/dL (40-59) Amylase Level 91 U/L (30-118) Lipase 60 U/L (12-53) Other Laboratory Tests 11/29/24 04:50 Brief Hx & Hospital Course: 79-year-old male with a history of Parkinson's dementia hypotension hypercholesterolemia AFib on amiodarone Eliquis burden by family for acute generalized weakness. Labs were normal patient had dehydration treated with the IV fluids. Flu test negative Ani test negative blood cultures negative urine cultures negative chest x-ray negative CT head negative CT abdomen pelvis without contrast negative. Patient is back in his baseline status and being discharged home to resume his previous medications. No new medications. Discharge plan acceptable to the who is at the bedside Consults/Reason for consult Non e Operations or Procedures CT head Chest x-ray CT abdomen pelvis without contrast Condition at Discharge: Fair Final Diagnosis/Problems List Acute generalized weakness Acute Dehydration: IV fluids Parkinson's disease Dementia Acute metabolic encephalopathy Hypertension Hypercholesterolemia History of AFib: Amiodarone Eliquis Chest x-ray Negative CT head negative CT abdomen pelvis without contrast negative Time spent 50 minutes Advanced care planning time 20 minutes Patient is full code Blood cultures negative Urine cultures negative Flu test negative Ani test neg Discharge Disposition: Home Discharge Instruct/Medications Diet: Cardiac 2g Na,low cholest Activity: Light activity Follow Up/Referral: Resume All previous home medications Follow up with the primary Dr Medications: none Reviewed all home medications Scheduled Amiodarone HCl (Amiodarone HCl), 1 TAB PO DAILY, (Reported) Amiodarone Hcl (Amiodarone Hcl), 100 MG PO BID, (Reported) Atorvastatin Calcium (Atorvastatin Calcium), 1 TAB PO DAILY, (Reported) Carvedilol (Carvedilol), 1 TAB PO BID, (Reported) Midodrine HCl (Midodrine Hydrochloride), 1 TAB PO TID, (Reported) Miscellaneous Medications Carbidopa-Levodopa (Carbidopa/Levodopa Er), (Reported) Lactulose (Lactulose), ML PO, (Reported) Discontinued Medications Amiodarone Hcl (Amiodarone Hcl), TAB PO, (Reported) 39 (Time taken for discharge summary 39 mts) Discharge Statement: "Patient was advised to return to the ER or call 911 if any headaches, dizziness, shortness of breath, chest pain, abdominal pain, bleeding, fevers, or worsening of medical condition. Patient was counseled about treatment plan, medications, possible side effects, patientverbalized understanding. All questions were answered to the best of my ability. This discharge took greater then 30 minutes in planning, reviewing documentation, counseling the patient, and discussing with other team members." ASSESSMENT ASSESSMENT Assessment Acute generalized weakness Acute Dehydration: IV fluids Parkinson's disease Dementia Acute metabolic encephalopathy Hypertension Hypercholesterolemia History of AFib: Amiodarone Eliquis Chest x-ray Negative CT head negative CT abdomen pelvis without contrast negative Time spent 50 minutes Advanced care planning time 20 minutes Patient is full code Blood cultures negative Urine cultures negative Flu test negative Ani test neg Date of Service: Dec 01, 2024 Billing Provider: DOROTA MONTANA MD Common Visit Codes: [id number] DISCH DAY >30min DOROTA MONTANA MD Dec 01, 2024 10:59
[2024-12-02 05:00] VITALS: BP 106/78; PULSE 81; RESP 17; TEMP 97.8; O2SAT 100
[2024-12-02 08:00] VITALS: RESP 18; O2SAT 100
--- NOTE | 2024-12-02 08:39 | DVHPN2 ---
Reviewed: Care Plan, H&P, Labs, Medications, Previous Orders, Radiology Changes from previous H/P or p: No Changes Eyes: No Pain, No Vision change, No Conjunctivae inflammation, No Eyelid inflammation, No Other, No Redness ENT: No Ear pain, No Ear discharge, No Nose pain, No Nose discharge, No Nose congestion, No Mouth pain, No Mouth swelling, No Throat pain, No Throat swelling, No Other Respiratory: No Cough, No Dry, No Shortness of breath, No SOB with excertion, No Wheezing, No Hemoptysis, No Pleuritic Pain, No Sputum, No Other Gastrointestinal: No Nausea, No Vomiting, No Abdominal Pain, No Diarrhea, No Constipation, No Melena, No Hematochezia, No Other Genitourinary: No Dysuria, No Frequency, No Incontinence, No Hematuria, No Retention, No Other Musculoskeletal: No other, No neck pain, No shoulder pain, No arm pain, No back pain, No hand pain, No leg pain, No foot pain Skin: No Rash, No Lesions, No Jaundice, No Bruising, No Other Objective Vitals Vital Signs Date Time Temp Pulse Resp B/P (MAP) Pulse Ox O2 Delivery O2 Flow Rate FiO2 12/02/24 05:00 97.8 81 17 106/78 (87) 100 97.8 12/01/24 20:00 Room Air* 0 21 Intake/Output Intake and Output 12/02/24 07:00 Intake Total 673 ml Output Total 750 ml Balance -77 ml Intake Oral 673 ml Output Urine Total 750 ml # Voids 5 # Bowel Movements 2 Medications Current Medications Medications Dose Ordered Sig/Harris Route Start Time Stop Time Status Last Admin Dose Admin Sodium Chloride 1,000 ml @ 60 mls/hr [id number] IV 11/28/24 07:15 12/01/24 17:44 60 MLS/HR Ondansetron HCl 4 mg Q4HP PRN IV 11/28/24 07:15 Amiodarone HCl 200 mg DAILY PO 11/28/24 10:00 12/01/24 11:46 200 MG Atorvastatin Calcium 40 mg HS PO 11/28/24 22:00 12/01/24 21:50 40 MG Hydralazine HCl 10 mg Q6HP PRN IV 11/28/24 08:30 Carbidopa/Levodopa 1 tab TID PO 11/28/24 22:00 9/4/25 05:32 1 TAB Midodrine 10 mg TID@0600,1200,1800 PO 11/29/24 18:00 12/02/24 05:32 10 MG Laboratory Results Laboratory Tests 11/29/24 04:50 Urinalysis Test 11/28/24 12:27 Urine Color Light-yellow (Yellow) Urine Clarity Clear (Clear) Urine pH 5.5 (5.0-9.0) Urine Specific [place] 1.009 (1.001-1.035) Urine Protein Negative (Negative) Urine Ketones Negative (Negative) Urine Blood Negative /uL (Negative) Urine Nitrite Negative (Negative) Urine Bilirubin Negative (Negative) Urine Urobilinogen Normal mg/dL (Negative) Urine Leukocyte Esterase Negative /uL (Negative) Urine RBC <1 /hpf (0 - 3) Urine Microscopic WBC < 1 /HPF (0-3) Urine Squamous Epithelial Cells Few /hpf (<5) Urine Bacteria None seen /hpf (None Seen) Urine Glucose Normal mg/dL (Normal) Microbiology Microbiology Date/Time Source Procedure Growth Status 11/28/24 12:27 Voided Urine Urine Culture - Final Complete 11/28/24 11:05 Blood Blood Culture - Preliminary NO GROWTH AFTER 72 HOURS OF INCUBATION. Resulted Labs and/or images reviewed: Labs reviewed by me, Image(s) reviewed by me Assessment/Plan Assessment/Plan Acute generalized weakness Acute Dehydration: IV fluids Parkinson's disease Dementia Acute metabolic encephalopathy Hypertension Hypercholesterolemia History of AFib: Amiodarone Eliquis Chest x-ray Negative CT head negative CT abdomen pelvis without contrast negative Time spent 50 minutes Advanced care planning time 20 minutes Patient is full code Blood cultures negative Urine cultures negative Flu test negative Ani test neg Dotty at bedside Patient was discharged on 12/01/2024, patient has had minor blood in the urine after Wong removed. Discharge was held because of concerns by the family, blood thinners held temporarily Urine is clear today, patient will be discharged today Plan discussed with: Patient My Orders Orders - DOROTA MONTANA MD Procedure Category Date Status Time Discontinue Wong ROMEO 12/01/24 In Process Catheter 11:27 * Fuel Injection Servicer CONS 12/01/24 Transmitted Consult Date of Service: Dec 02, 2024 Billing Provider: DOROTA MONTANA MD Common Visit Codes: [id number] INP/OBS CARE(HIGH) DOROTA MONTANA MD Dec 02, 2024 08:39
[2024-12-02 09:00] VITALS: BP 117/84; PULSE 75; RESP 16; TEMP 97.6; O2SAT 100
== END 2024-12-02 10:10 | disposition home or self-care (01) | DRG 640 ==
LOC: EDBD 04:32 → ER 04:32 → OVERFLOW 07:14 → CENTRAL 11-29 20:57
PROVIDERS: ADMIT Family Medicine; ATTEND Family Medicine
DX: E86.0 Dehydration (principal); G93.41 Metabolic encephalopathy; G20.A1 Parkinson's disease without dyskinesia, without mention of fluctuations; F02.80 Dementia in other diseases classified elsewhere, unspecified severity, without behavioral disturbance, psychotic disturbance, mood disturbance, and anxiety; I10 Essential (primary) hypertension; E78.00 Pure hypercholesterolemia, unspecified; Z20.822 Contact with and (suspected) exposure to COVID-19; I95.9 Hypotension, unspecified; I48.91 Unspecified atrial fibrillation; Z79.01 Long term (current) use of anticoagulants
CPT/HCPCS: 36415; 70450; 71045; 74176; 80053; 80061; 81001; 82150; 82962; 83605; 83690; 85025; 87040; 87086; 87426; 87804; 93005; 96365; 97110; 97116; 97163; 97530; 99291; G0378; J2543